=== PATIENT | male | born 1955 | race Caucasian/White ===

== ENCOUNTER 2022-07-10 10:15 | Outpatient (CLI) | payer MEDICARE | END 2022-07-10 10:16 | disposition home or self-care (01) | LOC: TBSIIMAG 10:15 | PROVIDERS: ATTEND Family Medicine | DX: M54.10 Radiculopathy, site unspecified (principal); M48.061 Spinal stenosis, lumbar region without neurogenic claudication; M48.07 Spinal stenosis, lumbosacral region | CPT/HCPCS: 72148 ==

== ENCOUNTER 2022-09-04 10:16 | Outpatient (CLI) | payer MEDICARE | END 2022-09-04 10:17 | disposition home or self-care (01) | LOC: LABBT 10:16 | PROVIDERS: ATTEND Neurological Surgery | DX: Z01.818 Encounter for other preprocedural examination (principal); Z20.822 Contact with and (suspected) exposure to COVID-19 | CPT/HCPCS: 87811; 93005; 93010 ==

== ENCOUNTER 2022-09-07 06:24 | Day surgery (SDC) | payer MEDICARE ==
[2022-09-06 09:18] VITALS: BMI 28.8
[2022-09-07] MEDS ORDERED: Levofloxacin 500 mg/D5W 100 ml Premix Bag ONE (07:12)
[2022-09-07] MEDS ORDERED: Thrombin 5000 UNITS/5 ML VIAL ONE (08:19)
[2022-09-07] MEDS ORDERED: Bupivacaine HCl 0.5%/Epinephrine 1:200,000/PF 30 ml Vial ONE (08:24)
[2022-09-07] MEDS ORDERED: Midazolam HCl 2 mg/2 ml Vial ONE (08:28)
[2022-09-07] MEDS ORDERED: fentaNYL Citrate/PF 100 MCG/2 ML SYRINGE ONE (08:29)
[2022-09-07] MEDS ORDERED: Clindamycin/D5W 900 mg/50 ml Premix Bag ONE (08:31)
[2022-09-07] MEDS ORDERED: Scopolamine 1.5 mg/72 hour Patch ONE (08:41)
[2022-09-07] MEDS ORDERED: Rocuronium Bromide 10 MG/ML (10ML VIAL) ONE (08:47)
[2022-09-07] MEDS ORDERED: Ondansetron PF 4 MG/2 ML Vial ONE (08:47)
[2022-09-07] MEDS ORDERED: Dexamethasone 20 MG/5 ML VIAL ONE (08:47)
[2022-09-07] MEDS ORDERED: PHENYLEPHRINE-NS 100 MCG/ML 10 ML SYRINGE ONE (08:47)
[2022-09-07] MEDS ORDERED: PROPOFOL 200 MG/20 ML VIAL ONE (08:47)
[2022-09-07] MEDS ORDERED: Ketorolac Tromethamine 30 MG/ML VIAL ONE (08:47)
[2022-09-07] MEDS ORDERED: SUGAMMADEX SODIUM 200 MG/2 ML VIAL ONE (09:54)
[2022-09-07] MEDS ORDERED: Fentanyl 100 MCG/2 ML VIAL ONE ×2 (10:19→10:36)
[2022-09-07] MEDS ORDERED: Tamsulosin HCl 0.4 MG CAP ONE (10:20)
[2022-09-07] MEDS ORDERED: HYDROcodone/Acetaminophen 5/325 mg Tablet ONE (13:49)
== END 2022-09-07 15:15 | disposition home or self-care (01) ==
LOC: SDC 06:24
PROVIDERS: ATTEND Neurological Surgery
PROC: 01NB0ZZ Release Lumbar Nerve, Open Approach (ICD-10-PCS; principal; 2022-09-07)
DX: M48.062 Spinal stenosis, lumbar region with neurogenic claudication (principal); I10 Essential (primary) hypertension; E78.5 Hyperlipidemia, unspecified; Z79.899 Other long term (current) drug therapy; Z88.0 Allergy status to penicillin; Z20.822 Contact with and (suspected) exposure to COVID-19; Z98.1 Arthrodesis status; Z98.890 Other specified postprocedural states
CPT/HCPCS: 76000; J1100; J1885; J1956; J2250; J2405; J2704; J3010; J3490